=== PATIENT | female | born 1960 | race American Indian/Alaskan Native ===

== ENCOUNTER 2016-08-12 10:35 | Inpatient (IN) | payer MEDICARE ==
[2016-08-12] MEDS ORDERED: NACL 0.9% 1000 ML 1,000 ML ONE ×2 (10:45→10:59)
[2016-08-12] MEDS ORDERED: D50W (25GM) IV ONE ×3 (10:53→11:47)
[2016-08-12] MEDS ORDERED: LEVOPHED DRIP 4 MG/NS 250 ML 250 ML IV ONE (10:59)
[2016-08-12] MEDS ORDERED: ATROPINE 0.1% (CARDIAC) ONE (10:59)
[2016-08-12] MEDS ORDERED: NACL 0.9% 1000 ML 2,000 ML IV ONE (11:00)
[2016-08-12] MEDS ORDERED: ARTIFICIAL TEARS OPHTH OINT OU PRN (11:03)
[2016-08-12] MEDS ORDERED: VASELINE LIP THERAPY TP PRN (11:03)
[2016-08-12] MEDS ORDERED: QUELICIN IV ONE (11:26)
[2016-08-12] MEDS ORDERED: AMIDATE IV ONE ×2 (11:26→21:39)
[2016-08-12] MEDS ORDERED: NACL 0.9% 1000 ML 1,000 ML IV ONE ×3 (11:28→13:00)
[2016-08-12] MEDS ORDERED: ATROPINE IV ONE ×2 (11:28→12:00)
[2016-08-12 11:29] LABS: Hematocrit 34.1 % (30.3-42.9); Hemoglobin 10.7 gm/dl (10.1-14.3); Mean Corpuscular HGB Conc 32 % (30-34); Mean Corpuscular Volume 82 fl (79-97); Red Blood Count 4.17 M/mm3 (3.65-5.03); Red Cell Distribution Width 17.5 % (13.2-15.2); White Blood Count 14.2 K/mm3 (4.5-11.0)
[2016-08-12 11:32] LABS: Mean Corpuscular Hemoglobin 26 pg (28-32); Platelet Count 56 K/mm3 (140-440)
[2016-08-12 11:39] LABS: INR 1.45 (0.87-1.13)
[2016-08-12 11:40] LABS: Partial Thromboplastin Time 32.1 Sec. (24.2-36.6)
--- NOTE | 2016-08-12 11:43 | Emergency Department Report ---
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 EMS reports that patient was in asystole. Chest compressions performed. EMS attempted oral intubation but aborted due to gagging therefore nasal tracheal intubation attempted unsuccessfully. Patient received a bag valve mask ventilations upon arrival with intermittent agonal respirations. Faint bradycardic pulse palpable. Patient's sister who presented to the ED states that patient has not received her BiPAP since being at the snf. Previous medical record review. Patient was admitted here July 26 a August 07 for COPD exacerbation and is recommended by BiPAP be continued. - Related Data Home Medications Medication Instructions Recorded Confirmed Last Taken Albuterol Sulfate [Proair 90 mcg IH Q4HR 07/26/16 07/26/16 Unknown Respiclick] Aspirin [Aspirin TAB] 325 mg PO QDAY 07/26/16 07/26/16 Unknown AtorvaSTATin [Lipitor] 40 mg PO QHS 07/26/16 07/26/16 Unknown Carvedilol [Coreg] 3.125 mg PO BID 07/26/16 07/26/16 Unknown Lisinopril [Zestril TAB] 2.5 mg PO QDAY 07/26/16 07/26/16 Unknown metFORMIN [Glucophage] 500 mg PO BID 07/26/16 07/26/16 Unknown Previous Rx's Medication Instructions Recorded Last Taken Type Fludrocortisone [Florinef] 0.1 mg PO TuThSa #10 tablet 08/07/16 Unknown Rx Furosemide [Lasix TAB] 40 mg PO QDAY #30 tablet 08/07/16 Unknown Rx Pantoprazole [Protonix TAB] 40 mg PO QDAY #30 tablet 08/07/16 Unknown Rx Prednisone [predniSONE 10 mg 10 mg PO .TAPER #1 tab.ds.pk 08/07/16 Unknown Rx (6-Day Pack, 21 Tabs)] Allergies Allergy/AdvReac Type Severity Reaction Status Date / Time No Known Allergies Allergy Verified 07/26/16 23:28 ED Review of Systems ROS: Stated complaint: CARDIAC ARREST Other details as noted in HPI Comment: Unobtainable due to pts medical conditions (ams) ED Past Medical Hx - Past Medical History Previous Medical History?: Yes Hx Congestive Heart Failure: Yes (new onset dx 07/2016) Hx Renal Disease: (denies) Hx COPD: Yes (home 02) - Social History Smoking Status: Unknown if ever smoked - Medications Home Medications: Home Medications Medication Instructions Recorded Confirmed Last Taken Type Albuterol Sulfate [Proair 90 mcg IH Q4HR 07/26/16 07/26/16 Unknown History Respiclick] Aspirin [Aspirin TAB] 325 mg PO QDAY 07/26/16 07/26/16 Unknown History AtorvaSTATin [Lipitor] 40 mg PO QHS 07/26/16 07/26/16 Unknown History Carvedilol [Coreg] 3.125 mg PO BID 07/26/16 07/26/16 Unknown History Lisinopril [Zestril TAB] 2.5 mg PO QDAY 07/26/16 07/26/16 Unknown History metFORMIN [Glucophage] 500 mg PO BID 07/26/16 07/26/16 Unknown History Fludrocortisone [Florinef] 0.1 mg PO TuThSa #10 tablet 08/07/16 Unknown Rx Furosemide [Lasix TAB] 40 mg PO QDAY #30 tablet 08/07/16 Unknown Rx Pantoprazole [Protonix TAB] 40 mg PO QDAY #30 tablet 08/07/16 Unknown Rx Prednisone [predniSONE 10 mg 10 mg PO .TAPER #1 tab.ds.pk 08/07/16 Unknown Rx (6-Day Pack, 21 Tabs)] ED Physical Exam - General Limitations: Other - Other Other exam information: General: Altered unresponsive Head exam: Atraumatic, normocephalic Eyes exam: Normal appearance, pupils equal reactive to light, extraocular movements intact ENT: Blood from bilateral nares right greater than left. Blood in the posterior pharynx with intubation Neck exam: Normal inspection Respiratory exam: Pig-pavos-heht ventilation, agonal respirations, clear breath sounds with prolonged expiratory phase Cardiovascular: Bradycardic regular rhythm Abdomen: Soft, nondistended, and nontender, with normal bowel sounds, no rebound, or guarding am umbilical hernia Extremity: right Leg I0, no spontaneous movement Back: Normal Inspection, full range of motion, no tenderness Neurologic: GCS equals 3 Skin: Warm, dry, intact ED Course Vital Signs 08/12/16 08/12/16 08/12/16 10:38 10:46 10:49 Pulse Rate 50 L 49 L Pulse Rate [ Bilateral Upper Lobe] Respiratory 16 17 Rate Respiratory Rate [Bilateral Upper Lobe] Blood Pressure 54/12 O2 Sat by Pulse 97 87 90 Oximetry 08/12/16 08/12/16 08/12/16 11:00 11:16 11:30 Pulse Rate 48 L 51 L 52 L Pulse Rate [ Bilateral Upper Lobe] Respiratory 17 16 12 Rate Respiratory Rate [Bilateral Upper Lobe] Blood Pressure 46/25 50/28 50/28 O2 Sat by Pulse 99 99 Oximetry 08/12/16 08/12/16 08/12/16 11:46 12:00 12:03 Pulse Rate 54 L 54 L Pulse Rate [ 50 L Bilateral Upper Lobe] Respiratory 16 16 Rate Respiratory 16 Rate [Bilateral Upper Lobe] Blood Pressure 113/87 58/13 O2 Sat by Pulse Oximetry 08/12/16 08/12/16 08/12/16 12:15 12:25 12:26 Pulse Rate 55 L 55 L Pulse Rate [ 56 L Bilateral Upper Lobe] Respiratory 16 24 Rate Respiratory 24 Rate [Bilateral Upper Lobe] Blood Pressure 65/27 50/30 O2 Sat by Pulse 96 Oximetry 08/12/16 08/12/16 08/12/16 12:30 12:45 12:57 Pulse Rate 55 L 53 L 71 Pulse Rate [ Bilateral Upper Lobe] Respiratory 24 9 L 14 Rate Respiratory Rate [Bilateral Upper Lobe] Blood Pressure 61/37 60/25 80/46 O2 Sat by Pulse 76 L 79 L 48 L Oximetry 08/12/16 08/12/16 08/12/16 13:01 13:15 13:31 Pulse Rate 67 58 L 58 L Pulse Rate [ Bilateral Upper Lobe] Respiratory 11 L 10 L 22 Rate Respiratory Rate [Bilateral Upper Lobe] Blood Pressure 93/58 66/41 66/41 O2 Sat by Pulse 100 88 Oximetry - Reevaluation(s) Reevaluation #1: 08/12/16 11:20 Patient only had IO upon presentation. I placed an 18-gauge catheter to the left IJ. Patient intubated and central line placed. Reevaluation #2: 08/12/16 11:44 Patient went into cardiopulmonary arrest. Chest compressions, epinephrine, and amp of bicarbonate provided with return of spontaneous circulation with systolic pressure 113. Replaced elevated later Reevaluation #3: 08/12/16 12:34 Right nasal packing placed due to persistent bleeding from previous nasotracheal intubation attempt. Only anterior/sterile packing available Reevaluation #4: 08/12/16 12:59 Patient window cardiopulmonary arrest again. He received epinephrine 2 and one amp of bicarbonate with return of spontaneous circulation. She remains remains significantly hypotensive.. Order antibiotics for possible septic shock - Consultations Consultation #1: 08/12/16 12:09 Case d/w Dr colin, he will consult - Procedure Description Procedures done: Right nasal packing. Rhino Rocket activated with sterile water for 30 seconds. 7.5 anterior/posterior packing placed in the right naris and inflated with approximately 8 mL of air. pt continued to have bleeding so a second rhino rocket was placed in rigth nare. 4.5 cm anterior packing with 5 ml of air - Central Line Placement Right IJ Consent Obtained: emergent situation Time Out Performed: Yes Patient Placed on Monitor/Pulse Ox: Yes MD Prep: mask, gown, gloves Central Line Prep: Chlorhexidine scrub, sterile drapes applied Local Anesthesia Used: Lidocaine 1% Amount of Anesthesia Used (mls): 3 Ultrasound Used for Placement: Yes Central Line Lumen Inserted: triple Bloods Obtained for Lab: Yes Central Line Position: good blood return, sutured in place with nyl Dressing Applied: Tegaderm Post Procedure X-Ray: tip of catheter in good p, pneumothorax seen Patient Tolerated Procedure: well, no complications - Intubation Time Out Performed: Yes Sedative: Etomidate Mg Given: 20 Paralytic: Succinylcholine Mg Given: 100 Laryngoscope: Vinay Size: 4 ET Tube Size: 7.5 Tube Secured Depth (cm): 22 Tube Secured Location: lips Tube Placement Confirmation: visualized tube passing t, equal breath sounds bilat, no breath sounds over epi, confirmation by capnometr Patient Tolerated Procedure: well Intubation Complications: none ED Medical Decision Making - Lab Data Result diagrams: 08/12/16 11:18 08/12/16 11:18 Lab Results 08/12/16 08/12/16 08/12/16 Range/Units 10:54 11:18 11:18 WBC 14.2 H (4.5-11.0) K/mm3 RBC 4.17 (3.65-5.03) M/mm3 Hgb 10.7 (10.1-14.3) gm/dl Hct 34.1 (30.3-42.9) % MCV 82 (79-97) fl MCH 26 L (28-32) pg MCHC 32 (30-34) % RDW 17.5 H (13.2-15.2) % Plt Count 56 L (140-440) K/mm3 Add Manual Diff Complete Total Counted 100 Seg Neutrophils % Boilermaker Helper Seg Neuts % (Manual) 93.0 H (40.0-70.0) % Band Neutrophils % 0 % Lymphocytes % (Manual) 4.0 L (13.4-35.0) % Reactive Lymphs % (Man) 0 % Monocytes % (Manual) 3.0 (0.0-7.3) % Eosinophils % (Manual) 0 (0.0-4.3) % Basophils % (Manual) 0 (0.0-1.8) % Metamyelocytes % 0 % Myelocytes % 0 % Promyelocytes % 0 % Blast Cells % 0 % Nucleated RBC % Not Reportable Seg Neutrophils # Man 13.2 H (1.8-7.7) K/mm3 Band Neutrophils # 0.0 K/mm3 Lymphocytes # (Manual) 0.6 L (1.2-5.4) K/mm3 Abs React Lymphs (Man) 0.0 K/mm3 Monocytes # (Manual) 0.4 (0.0-0.8) K/mm3 Eosinophils # (Manual) 0.0 (0.0-0.4) K/mm3 Basophils # (Manual) 0.0 (0.0-0.1) K/mm3 Metamyelocytes # 0.0 K/mm3 Myelocytes # 0.0 K/mm3 Promyelocytes # 0.0 K/mm3 Blast Cells # 0.0 K/mm3 WBC Morphology Not Reportable Hypersegmented Neuts Not Reportable Hyposegmented Neuts Not Reportable Hypogranular Neuts Not Reportable Smudge Cells Not Reportable Toxic Granulation Not Reportable Toxic Vacuolation Not Reportable Dohle Bodies Not Reportable Pelger-Huet Anomaly Not Reportable Arjun Rods Not Reportable Platelet Estimate Consistent w auto Clumped Platelets Not Reportable Plt Clumps, EDTA Not Reportable Large Platelets Not Reportable Giant Platelets Not Reportable Platelet Satelliting Not Reportable Plt Morphology Comment Not Reportable RBC Morphology Not Reportable Dimorphic RBCs Not Reportable Polychromasia Not Reportable Hypochromasia 1+ Poikilocytosis Not Reportable Anisocytosis 1+ Microcytosis Not Reportable Macrocytosis Not Reportable Spherocytes Not Reportable Pappenheimer Bodies Not Reportable Sickle Cells Not Reportable Target Cells Rare Tear Drop Cells Not Reportable Ovalocytes Not Reportable Stomatocytes Few Helmet Cells Not Reportable [place] Bodies Not Reportable [place] Rings Not Reportable [place] Cells Not Reportable Bite Cells Not Reportable Crenated Cell Not Reportable Elliptocytes Not Reportable Acanthocytes (Spur) Not Reportable Rouleaux Not Reportable Hemoglobin C Crystals Not Reportable Schistocytes Not Reportable Malaria parasites Not Reportable Lyle Bodies Not Reportable Hem Pathologist Commnt No PT 17.6 H (12.2-14.9) Sec. INR 1.45 H (0.87-1.13) APTT 32.1 (24.2-36.6) Sec. POC ABG pH (7.35-7.45) POC ABG pCO2 (35-45) POC ABG pO2 (80-105) POC ABG HCO3 POC ABG Total CO2 POC ABG O2 Sat POC ABG Base Excess VBG pH (7.320-7.420) FiO2 % Sodium (137-145) mmol/L Potassium (3.6-5.0) mmol/L Chloride (98-107) mmol/L Carbon Dioxide (22-30) mmol/L Anion Gap mmol/L BUN (7-17) mg/dL Creatinine (0.7-1.2) mg/dL Estimated GFR ml/min BUN/Creatinine Ratio % Glucose (65-100) mg/dL POC Glucose 59 L (70-105) Lactic Acid (0.7-2.0) mmol/L Calcium (8.4-10.2) mg/dL Total Bilirubin (0.1-1.2) mg/dL AST (5-40) units/L ALT (7-56) units/L Alkaline Phosphatase (35-129) units/L Total Creatine Kinase (30-135) units/L CK-MB (CK-2) (0.0-4.0) ng/mL CK-MB (CK-2) Rel Index (0-4) Troponin T (0.00-0.029) ng/mL Total Protein (6.3-8.2) g/dL Albumin (3.9-5) g/dL Albumin/Globulin Ratio % Triglycerides (2-149) mg/dL Cholesterol (50-199) mg/dL LDL Cholesterol Direct (50-130) mg/dL HDL Cholesterol (40-59) mg/dL Cholesterol/HDL Ratio % 08/12/16 08/12/16 08/12/16 Range/Units 11:18 11:18 11:18 WBC (4.5-11.0) K/mm3 RBC (3.65-5.03) M/mm3 Hgb (10.1-14.3) gm/dl Hct (30.3-42.9) % MCV (79-97) fl MCH (28-32) pg MCHC (30-34) % RDW (13.2-15.2) % Plt Count (140-440) K/mm3 Add Manual Diff Total Counted Seg Neutrophils % Seg Neuts % (Manual) (40.0-70.0) % Band Neutrophils % % Lymphocytes % (Manual) (13.4-35.0) % Reactive Lymphs % (Man) % Monocytes % (Manual) (0.0-7.3) % Eosinophils % (Manual) (0.0-4.3) % Basophils % (Manual) (0.0-1.8) % Metamyelocytes % % Myelocytes % % Promyelocytes % % Blast Cells % % Nucleated RBC % Seg Neutrophils # Man (1.8-7.7) K/mm3 Band Neutrophils # K/mm3 Lymphocytes # (Manual) (1.2-5.4) K/mm3 Abs React Lymphs (Man) K/mm3 Monocytes # (Manual) (0.0-0.8) K/mm3 Eosinophils # (Manual) (0.0-0.4) K/mm3 Basophils # (Manual) (0.0-0.1) K/mm3 Metamyelocytes # K/mm3 Myelocytes # K/mm3 Promyelocytes # K/mm3 Blast Cells # K/mm3 WBC Morphology Hypersegmented Neuts Hyposegmented Neuts Hypogranular Neuts Smudge Cells Toxic Granulation Toxic Vacuolation Dohle Bodies Pelger-Huet Anomaly Arjun Rods Platelet Estimate Clumped Platelets Plt Clumps, EDTA Large Platelets Giant Platelets Platelet Satelliting Plt Morphology Comment RBC Morphology Dimorphic RBCs Polychromasia Hypochromasia Poikilocytosis Anisocytosis Microcytosis Macrocytosis Spherocytes Pappenheimer Bodies Sickle Cells Target Cells Tear Drop Cells Ovalocytes Stomatocytes Helmet Cells [place] Bodies [place] Rings [place]ay Cells Bite Cells Crenated Cell Elliptocytes Acanthocytes (Spur) Rouleaux Hemoglobin C Crystals Schistocytes Malaria parasites Lyle Bodies Hem Pathologist Commnt PT (12.2-14.9) Sec. INR (0.87-1.13) APTT (24.2-36.6) Sec. POC ABG pH (7.35-7.45) POC ABG pCO2 (35-45) POC ABG pO2 (80-105) POC ABG HCO3 POC ABG Total CO2 POC ABG O2 Sat POC ABG Base Excess VBG pH 7.111 L* (7.320-7.420) FiO2 % Sodium 138 (137-145) mmol/L Potassium 6.5 H* (3.6-5.0) mmol/L Chloride 93.1 L (98-107) mmol/L Carbon Dioxide 25 (22-30) mmol/L Anion Gap 26 mmol/L BUN 100 H (7-17) mg/dL Creatinine 2.7 H (0.7-1.2) mg/dL Estimated GFR 22 ml/min BUN/Creatinine Ratio 37.03 % Glucose 197 H (65-100) mg/dL POC Glucose (70-105) Lactic Acid 6.9 H* (0.7-2.0) mmol/L Calcium 7.1 L (8.4-10.2) mg/dL Total Bilirubin 1.3 H (0.1-1.2) mg/dL AST 56 H (5-40) units/L ALT 67 H (7-56) units/L Alkaline Phosphatase 77 (35-129) units/L Total Creatine Kinase (30-135) units/L CK-MB (CK-2) (0.0-4.0) ng/mL CK-MB (CK-2) Rel Index (0-4) Troponin T (0.00-0.029) ng/mL Total Protein 4.5 L (6.3-8.2) g/dL Albumin 2.4 L (3.9-5) g/dL Albumin/Globulin Ratio 1.1 % Triglycerides (2-149) mg/dL Cholesterol (50-199) mg/dL LDL Cholesterol Direct (50-130) mg/dL HDL Cholesterol (40-59) mg/dL Cholesterol/HDL Ratio % 08/12/16 08/12/16 08/12/16 Range/Units 11:18 11:31 12:20 WBC (4.5-11.0) K/mm3 RBC (3.65-5.03) M/mm3 Hgb (10.1-14.3) gm/dl Hct (30.3-42.9) % MCV (79-97) fl MCH (28-32) pg MCHC (30-34) % RDW (13.2-15.2) % Plt Count (140-440) K/mm3 Add Manual Diff Total Counted Seg Neutrophils % Seg Neuts % (Manual) (40.0-70.0) % Band Neutrophils % % Lymphocytes % (Manual) (13.4-35.0) % Reactive Lymphs % (Man) % Monocytes % (Manual) (0.0-7.3) % Eosinophils % (Manual) (0.0-4.3) % Basophils % (Manual) (0.0-1.8) % Metamyelocytes % % Myelocytes % % Promyelocytes % % Blast Cells % % Nucleated RBC % Seg Neutrophils # Man (1.8-7.7) K/mm3 Band Neutrophils # K/mm3 Lymphocytes # (Manual) (1.2-5.4) K/mm3 Abs React Lymphs (Man) K/mm3 Monocytes # (Manual) (0.0-0.8) K/mm3 Eosinophils # (Manual) (0.0-0.4) K/mm3 Basophils # (Manual) (0.0-0.1) K/mm3 Metamyelocytes # K/mm3 Myelocytes # K/mm3 Promyelocytes # K/mm3 Blast Cells # K/mm3 WBC Morphology Hypersegmented Neuts Hyposegmented Neuts Hypogranular Neuts Smudge Cells Toxic Granulation Toxic Vacuolation Dohle Bodies Pelger-Huet Anomaly Arjun Rods Platelet Estimate Clumped Platelets Plt Clumps, EDTA Large Platelets Giant Platelets Platelet Satelliting Plt Morphology Comment RBC Morphology Dimorphic RBCs Polychromasia Hypochromasia Poikilocytosis Anisocytosis Microcytosis Macrocytosis Spherocytes Pappenheimer Bodies Sickle Cells Target Cells Tear Drop Cells Ovalocytes Stomatocytes Helmet Cells [place] Bodies [place] Rings [place] Cells Bite Cells Crenated Cell Elliptocytes Acanthocytes (Spur) Rouleaux Hemoglobin C Crystals Schistocytes Malaria parasites Lyle Bodies Hem Pathologist Commnt PT (12.2-14.9) Sec. INR (0.87-1.13) APTT (24.2-36.6) Sec. POC ABG pH 7.185 L (7.35-7.45) POC ABG pCO2 80.7 H (35-45) POC ABG pO2 25 L (80-105) POC ABG HCO3 30.5 POC ABG Total CO2 33 POC ABG O2 Sat 30 POC ABG Base Excess 2 VBG pH (7.320-7.420) FiO2 50 % Sodium (137-145) mmol/L Potassium (3.6-5.0) mmol/L Chloride (98-107) mmol/L Carbon Dioxide (22-30) mmol/L Anion Gap mmol/L BUN (7-17) mg/dL Creatinine (0.7-1.2) mg/dL Estimated GFR ml/min BUN/Creatinine Ratio % Glucose (65-100) mg/dL POC Glucose (70-105) Lactic Acid (0.7-2.0) mmol/L Calcium (8.4-10.2) mg/dL Total Bilirubin (0.1-1.2) mg/dL AST (5-40) units/L ALT (7-56) units/L Alkaline Phosphatase (35-129) units/L Total Creatine Kinase 137 H 141 H (30-135) units/L CK-MB (CK-2) 6.3 H (0.0-4.0) ng/mL CK-MB (CK-2) Rel Index 4.4 H (0-4) Troponin T 0.124 H* (0.00-0.029) ng/mL Total Protein (6.3-8.2) g/dL Albumin (3.9-5) g/dL Albumin/Globulin Ratio % Triglycerides 111 (2-149) mg/dL Cholesterol 109 (50-199) mg/dL LDL Cholesterol Direct 61 (50-130) mg/dL HDL Cholesterol 26 L (40-59) mg/dL Cholesterol/HDL Ratio 4.19 % - EKG Data -: EKG Interpreted by Me (sinus bradycardia 55 with first-degree AV block no ST elevation) - EKG Data When compared to previous EKG there are: no significant change - Radiology Data Radiology results: report reviewed Chest x-ray: Adequate placement of ET tube and central venous catheter. , Both may be advanced more. Lungs clear mild cardiomegaly - Medical Decision Making Patient requires admission to the ICU. She is still very unstable requiring ventilatory and pressure support. Medications initiated for hyperkalemia, IV fluids initiated, patient placed on Levophed in the ED. Patient did receive 2 doses of atropine with minimal improvement in heart rate. - Differential Diagnosis respiratory failure, sepsis, [place], arrhythmia Critical Care Time: Yes Critical care time in (mins) excluding proc time.: 40 Critical care attestation.: If time is entered above; I have spent that time in minutes in the direct care of this critically ill patient, excluding procedure time. ED Disposition Clinical Impression: Cardiopulmonary arrest, Hypotension, Prerenal azotemia, Acute renal failure, Hyperkalemia, COPD with exacerbation, Cor pulmonale (chronic), Epistaxis, Thrombocytopenia, Elevated lactic acid level, Acidosis Disposition: OP ADMITTED IP TO THIS HOSP Is pt being admited?: Yes Condition: Stable Time of Disposition: 12:14 (Dr mae/hosp)
[2016-08-12 11:45] LABS: Albumin 2.4 g/dL (3.9-5); Albumin/Globulin Ratio 1.1 %; BUN/Creatinine Ratio 37.03; Bilirubin,Total 1.3 mg/dL (0.1-1.2); Calcium 7.1 mg/dL (8.4-10.2); Chloride 93.1 mmol/L (98-107); Total Protein 4.5 g/dL (6.3-8.2)
[2016-08-12 11:46] LABS: Potassium 6.5 mmol/L (3.6-5.0)
[2016-08-12] MEDS ORDERED: PROVENTIL IH ONE (11:46)
[2016-08-12] MEDS ORDERED: SODIUM BICARBONATE IV ONE ×6 (11:46→21:36)
[2016-08-12] MEDS ORDERED: KAYEXALATE PO ONE (11:49)
[2016-08-12 11:52] LABS: Creatine Kinase MB 6.3 ng/mL (0.0-4.0)
--- NOTE | 2016-08-12 11:52 | XRay Report ---
AP CHEST: HISTORY: Endotracheal tube placement. Central line placement. FINDINGS: The endotracheal tube has been inserted which terminates 6 cm superior to the betty. A right IJ venous catheter has been inserted which terminates in the superior SVC, consider advancement by 5-6 cm to the cavoatrial junction. The lungs are well-aerated and clear. No evidence for pneumonia, pleural effusion or pneumothorax. Mild cardiomegaly is unchanged since the exam 8 days ago. IMPRESSION: Adequate placement of lines and tubes. Mild cardiomegaly. Lungs clear.
--- NOTE | 2016-08-12 11:58 | Admit Criteria Form ---
Admission Criteria Documentation: INTENSIVE CARE UNIT ADMISSION Intensive Care Admission Guidelines ( Place 'X' for any and all applicable criteria): Admission to ICU may be indicated when need is demonstrated by ANY ONE of the following (1)(2)(3)(4)(5)(6)(7)(8)(9) : [X ]I. Vital sign abnormalities, including ANY ONE of the following: [X ]a) Systolic arterial pressure less than 90 mm Hg, or 20 mm Hg below the patient's usual pressure [ ]b) Diastolic arterial pressure greater than 120 mm Hg [X ]c) Mean arterial pressure less than 70 mm Hg [A] [ ]d) Pulse less than 40 or greater than 140 beats per minute (in adult) [ ]e) Respiratory rate greater than 35 or less than 8 breaths per minute [ X]II. Laboratory findings (new), including ANY ONE of the following (10): [ ]a) Saturation of arterial oxygen less than 88% or partial pressure of oxygen less than 60 mm Hg (8.0 kPa) despite oxygen supplementation [ ]b) Rising partial pressure of carbon dioxide with respiratory acidosis [X]c) pH less than 7.2 or greater than 7.65 [ ]d) Serum glucose greater than 800 mg/dL (44.4 mmol/L) [ ]e) Serum sodium less than 110 mEq/L (mmol/L) or greater than 160 mEq/L (mmol/L) [ ]f) Serum potassium less than 2 mEq/L (mmol/L) or greater than 7 mEq /L (mmol/L) [ ]g) Serum calcium greater than 15 mg/dL (3.75 mmol/L) [ ]h) Serum phosphorus less than 1 mg/dL (0.32 mmol/L) [ ]i) Toxic drug level or poisoning causing or likely to cause neurologic or Hemodynamic instability [ ]j) Less severe laboratory abnormalities contributing to ANY ONE of the following: [ ]i) Seizure [ ]ii) Altered mental status [ ]iii) Muscle weakness [ ]iv) Arrhythmias [ ]v) Hemodynamic instability [ ]vi) Other significant clinical manifestations [ ]III. Electrocardiogram (or cardiac monitoring) findings, including ANY ONE of the following: [ ]a) Inherently unstable or life-threatening arrhythmia (eg, sustained ventricular tachycardia, ventricular fibrillation, asystole) [ ]b) Arrhythmia causing severe hypotension (eg, bradycardia, tachycardia) [ ]c) Complete heart block causing severe hypotension [ ]d) Other findings indicative of a need for intensive care (eg , CA) [X ]IV.Physical findings, including ANY ONE of the following: [ ]a) Threatened airway [ ]b) Sudden altered mental status [ ]c) Repeated or prolonged seizures [ ]d) Coma [ ]e) New-onset anuria (urine output <0.1 mL/kg/hr over 4 h) [ ]f) Cyanosis (new) [ ]g) Cardiac tamponade [X ]h) Status post respiratory or cardiac arrest [ ]i) Severe jaime (eg, partial thickness jaime over more than 10% of body surface, third-degree jaime) [ ]j) Findings consistent with abdominal emergency (eg, peritoneal signs) [ ]V.Imaging findings, such as dissecting aneurysm or ruptured viscus [ ].Specific intervention or monitoring needed, as indicated by ANY ONE of the following: [ ]a) New need for assisted ventilation, invasive or noninvasive(11) [ ]b) New need for intubation (eg, to protect airway) [ ]c) New tracheostomy (less than 48 hours old) [ ]d) Hourly vital signs or neurologic checks [ ]e) Pulmonary artery line monitoring needed [ ]f) Continuous arterial line monitoring needed [ ]g) Continuous IV vasoactive drugs [ ]h) Continuous IV antiarrhythmics [ ]i) Large volume IV fluid resuscitation (eg, greater than 6 L per day ) [ ]j) Large or rapid transfusion needs (eg, more than 6 units within 24 hours) [ ]k) High-risk IV treatment, such as bolus IV medicatns or mannitol infusion [ ]l) Acute cardiac pacing [ ]m) Intra-aortic balloon pump [ ]n) Ventricular assist device [ ]o) Cardioversion [ ]p) Pericardiocentesis [ ]q) Hemodialysis in unstable patient [ ]r) Continuous renal replacement therapy (eg, continuous veno-venous hemofiltration) [ ]s) Peritoneal dialysis initiation [ ]t) Emergency bronchoscopic therapy (eg, for hemoptysis) [ ]u) Emergency endoscopic therapy for bleeding [ ]v) Balloon tamponade for variceal bleeding [ ]w) Intracranial pressure monitoring or tissue oxygen monitoring [ ]x) Ventriculostomy monitoring [ ]y) Treatment of ongoing seizures [ ]z) Induced hypothermia or coma [ ]aa) Ongoing frequent testing and treatment for acute conditions, including ANY ONE of the following: [ ]i) Correction of severe metabolic acidosis/ alkalosis [ ]ii). Severe fluid overload [ ]iii) Cerebral edema [ ]iv) Monitoring or suctioning for respiratory insufficiency or acidosis [ ]v) Monitoring for active bleeding [ ]bb) Rapid desensitization for high-risk hypersensitivity reaction to required medication (eg, penicillin)(12) [ ]cc) Other need for treatment or monitoring not available outside the ICU [ ]VII.Cardiology diagnoses or procedures, including ANY ONE of the following (13)(14)(15)(16)(17): [ ]a) Chest pain with ANY ONE of the following: [ ]i) Hemodynamic instability [ ]ii) Suspicion of diagnoses needing ICU care (eg, aortic dissection) [ ]iii) New unstable or symptomatic arrhythmia or ECG finding (eg, ventricular tachycardia, ventricular fibrillation, advanced heart block) [ ]iv) Syncope or near-syncope [ ]v) SBP less than 100 mm Hg [ ]vi) Pulmonary edema thought to be due to ischemia [ ]vii) New or worsening mitral regurgitation murmur, S3 , or rales [ ]b) Acute CA with complications as indicated by ANY ONE of the following: [ ]i) Persistent chest pain [ ]ii) Hemodynamic instability [ ]iii) New unstable or symptomatic arrhythmia or ECG finding (eg, ventricular tachycardia, ventricular fibrillation, advanced heart block) [ ]iv) Syncope or near-syncope [ ]v) Pulmonary edema thought to be due to ischemia [ ]vi) New or worsening mitral regurgitation murmur, S3 , or rales [ ]vii) New-onset bundle branch block [ ]viii) Hemorrhagic complication (eg, intracranial or access site bleed following thrombolysis) [ ]c) Cardiac arrhythmia or conduction defect with Hemodynamic instability [ ]d) Complication of cardiac ablation, including ANY ONE of the following(18): [ ]i) Pericardial tamponade [ ]ii) Hemodynamic instability [ ]iii) Thromboembolic stroke [ ]iv) Aortic valve injury [ ]v) Vascular injuries [ ]vi) Esophageal perforation [ ]vii) Severe arrhythmia [ ]viii) Air embolism [ ]ix) Other severe complication [ ]e) Cardiogenic shock [ ]f) Hypertensive emergency, with need for ANY ONE of the following(19): [ ]i) IV antihypertensive therapy [ ]ii) Invasive hemodynamic monitoring (eg, arterial line) [ ]g) Pericardial tamponade [ ]h) Severe heart failure, with ANY ONE of the following(15): [ ]i) Respiratory failure [ ]ii) Cardiogenic shock [ ]iii) Severe arrhythmias [ ]iv) Evidence of cardiac ischemia [ ]i Myocarditis, with ANY ONE of the following [ ]i) Hemodynamic instability [ ]ii) Respiratory failure [ ]iii) Severe arrhythmias [ ]iv) Need for cardiac assist device (eg, left ventricular assist device or extracorporeal membrane oxygenator) [ ]j) Status post cardiac arrest(20) [ ]VIII. Cardiovascular Surgery diagnoses or procedures, including ANY ONE of the following.(21)(22): [ ]a) Acute aortic dissection [ ]b) Aortic surgery for ANY ONE of the following: [ ]i) Thoracic aneurysm [ ]ii) Abdominal aneurysm with ANY ONE of the following(23): [ ]1) Emergency repair [ ]2) Severe cardiopulmonary disease [ ]3) Dialysis-dependent renal failure [ ]4) Need for IV blood pressure control [ ]5) Need for ongoing ventilatory support [ ]6) Perioperative complications, including ANY ONE of the following: [ ]A. Sustained Hemodynamic instability [ ]B. Cardiac ischemia or arrhythmia [ ]C. Hypothermia (less than 35 degrees C (95 degrees F)) [ ]D. Blood transfusion greater than 3 L [ ]iii) Aortic coarctation operative excision or repair [ ]iv) Aortofemoral or aortoiliac bypass with ANY ONE of the following: [ ]1) Continued intubation [ ]2) Hemodynamic instability [ ]3) Need for IV blood pressure control [ ]4) Severe cardiopulmonary disease [ ]c) Cardiac surgery [ ]d) Carotid endarterectomy or stent placement with ANY ONE of the following: [ ]i) Blood pressure <100/60 mm Hg or >160/90 mm Hg despite 4 h of postanesthetic management [ ]ii) New or progressive neurologic defect [ ]iii) Chest pain [ ]iv) Continued intubation [ ]v) Heart failure [ ]vi) Airway compromise by hematoma or vocal cord paralysis [ ]vi) Need for IV blood pressure control [ ]e) Heart transplant [ ]f) Infrainguinal peripheral vascular surgery with ANY ONE of the following: [ ]i) Hemodynamic instability [ ]ii) Acute complications such as persistent chest pain or respiratory distress [ ]iii) Requirement for IV antiarrhythmic or vasoactive agent [ ]iv) Requirement for pulmonary artery catheter [ ]v) Severe hypertension despite 6 hours of recovery room management [ ]g) Complications of any surgery requiring ICU intervention as indicated by ANY ONE of the following(24): [ ]i) Hemodynamic instability [ ]ii) Myocardial infarction with complications (eg, severe arrhythmia, hypotension) [ ]iii) Excessive bleeding or severe coagulopathy [ ]iv) Respiratory failure [ ]v) Renal failure [ ]vi) Airway instability or obstruction [ ]vii) Neurologic deterioration [ ]viii) Infection with likelihood of sepsis syndrome or significant fluid shifts [ ]IX.Endocrinology diagnoses or procedures, including ANY ONE of the following(25)(26): [ ]a) Adrenal crisis with Hemodynamic instability(27) [ ]b) Pheochromocytoma with ANY ONE of the following(28): [ ]i) Hypertensive crisis [ ]ii) Postoperative Hemodynamic instability [ ]iii) Need for IV vasoactive therapy [ ]iv) Need for invasive arterial or central venous pressure monitoring [ ]v) Organ ischemia [ ]c) Diabetic hyperosmolar state with obtundation or coma [ ]d) Diabetic ketoacidosis with ANY ONE of the following: [ ]i) Serum pH less than 7.10 or bicarbonate level less than 10 mEq/L (mmol/L) [ ]ii) Rapidly changing electrolytes [ ]iii) Hypotension [ ]iv) Requirement for large-volume fluid resuscitation [ ]v) Respiratory insufficiency [ ]vi) Life-threatening cardiac dysrhythmias [ ]vii) Obtundation [ ]viii) Severe precipitating condition such as sepsis, stroke, or acute CA [ ]e) Severe hypoglycemia requiring continuous glucose infusion with frequent adjustment or glucagon infusion [ ]f) Hyperthyroidism associated with thyroid storm (also known as thyrotoxic crisis)(29) [ ]g) Myxedema with life-threatening neurologic, cardiovascular, electrolyte, or renal dysfunction(29) [ ]h) Diabetes insipidus that cannot be controlled with routine medication (30) [ ]X. Gastroenterology diagnoses or procedures, including ANY ONE of the following: [ ]a) Esophageal perforation(31) [ ]b) Severe caustic esophageal injury(31) [ ]c) Liver disease complications with ANY ONE of the following(32): [ ]i) Severe hepatic encephalopathy (eg, stage 3 (somnolent) or higher) [ ]ii) Type 1 hepatorenal syndrome [ ]iii) Other cirrhosis-associated causes of acute renal failure ( eg, severe hypovolemia, acute tubular necrosis, abdominal compartment syndrome) [ ]iv) Hemodynamic instability [ ]v) Respiratory insufficiency due to severe ascites [ ]vi) Sepsis due to spontaneous bacterial peritonitis [ ]d) Fulminant hepatic failure when aggressive intervention or transplant is anticipated (32) [ ]e) Gastrointestinal hemorrhage (upper or lower) with ANY ONE of the following(33)(34): [ ]i) Active ongoing bleeding [ ]ii) Transfusion requirement greater than 2 units of packed red cells [ ]iii) Bleeding ulcer or nonbleeding visible vessel seen on endoscopy [ ]iv) Bleeding ulcer, visible blood vessel, bleeding (or recently bleeding) esophageal varices seen on endoscopy [ ]v) Hypotension [ ]vi) Syncope [ ]vii) Coagulopathy [ ]viii) Hepatic cirrhosis [ ]ix) Abnormal mental status [ ]x) Unstable comorbid condition or end organ dysfunction [ ]xi) Ischemia due to poor perfusion [ ]xii) Need for hemodynamic monitoring (eg, for patients with heart failure or valvular disease) [ ]f) Severe pancreatitis indicated by ANY ONE of the following (35)(36): [ ]i) Requirement for aggressive fluid resuscitation [ ]ii) Life-threatening electrolyte abnormality [ ]iii) SBP less than 90 mm Hg [ ]iv) Persistent tachycardia greater than 120 beats per minute [ ]v) Patients at high risk of rapid deterioration, including ANY ONE of the following: [ ]1) Calculated [place] II score greater than 8 [ ]2) Age older than 55 years [ ]3) BMI greater than 30 [ ]4) Greater than 30% pancreatic necrosis on CT scan [ ]5) Admission hematocrit greater than 47% (0.47) [ ]vi) Organ failure as indicated by ANY ONE of the following: [ ]1) Serum creatinine greater than 1.9 mg/dL (168 micromoles/L) [ ]2) Requirement for mechanical ventilation [ ]3) Urine output less than 50 mL/hour [ ]4) Arterial partial pressure of oxygen less than 60 mm Hg (8.0 kPa) despite supplemental oxygen [ ]5) PiO2/FiO2 ratio less than 300 [ ]vii) Expanding pseudocyst [ ]viii) Infected pancreas [ ]ix) Pleural effusion [ ]x) Encephalopathy [ ]xi) Severe comorbidities [ ]XI. General Surgery diagnoses or procedures, including ANY ONE of the following (9)(24)(37): [ ]a) Acute abdominal catastrophe (eg, ischemic bowel, perforated viscus, abdominal compartment syndrome) [ ]b) Complications of any surgery requiring ICU intervention as indicated by ANY ONE of the following: [ ]i) Hemodynamic instability [ ]ii) CA with complications (eg, severe arrhythmia, hypotension) [ ]iii) Excessive bleeding or severe coagulopathy [ ]iv) Respiratory failure [ ]v) Renal failure [ ]vi) Airway instability or obstruction [ ]vii) Neurologic deterioration [ ]viii) Infection with likelihood of sepsis syndrome or significant fluid shifts [ ]c) Multiple trauma with complicating features as indicated by ANY ONE of the following(38): [ ]i) Impending acute respiratory failure due to lung contusion, unstable chest wall, aspiration, or hemorrhage [ ]ii) Facial or neck injury threatening airway patency [ ]iii) Cardiac contusion [ ]iv) Pericardial effusion [ ]v) Bronchial tear [ ]vi) Hemodynamic instability [ ]vii) Rhabdomyolisis requiring large volume IV fluid resuscitation [ ]viii)Other significant complicating feature [ ]d) Organ transplant(39)(40) [ ]e) Esophagectomy(31) [ ]f) Whipple procedure [ ]g) Preoperative or postoperative patients requiring ICU intervention, such as hemodynamic optimization, pulmonary artery monitoring, mechanical ventilation, or extensive nursing care [ ]h) Obesity surgery patients with ANY ONE of the following(41): [ ]i) ICU management needs for comorbid conditions, such as sleep apnea or airway management needs [ ]ii) Failed postoperative extubation [ ]iii) Intraoperative complications [ ]XII. Nephrology diagnoses or procedures, including acute, or acute on chronic renal insufficiency with ANY ONE of the following(44)(45): [ ]a) Life-threatening electrolyte or acid-base disorder [ ]b) Acute pulmonary edema [ ]c) Hypotension or significant volume depletion [ ]d) Hypertensive emergency [ ]e) Underlying critical illness contributing to renal failure (eg, septic shock, hepatorenal syndrome) [ ]f) Need for continuous renal replacement therapy [ ]XIII. Neurology diagnoses or procedures, including ANY ONE of the following (46)(47) [B] : [ ]a) Intracranial hypertension requiring ANY ONE of the following(49 ): [ ]i) Induced barbiturate coma [ ]ii) Pharmacologic paralysis or deep sedation and mechanical ventilation [ ]iii) Intracranial pressure or cerebral perfusion pressure monitoring [ ]iv) IV mannitol or hypertonic saline [ ]v) Frequent serum osmolality measurements [ ]b) Seizures with ANY ONE of the following(50): [ ]i) Status epilepticus [ ]ii) Airway compromise requiring or likely to require mechanical ventilation [ ]iii) Severe electrolyte abnormalities causing seizures [ ]c) Progressive acute neurologic dysfunction requiring or likely to require ANY ONE of the following: [ ]i) Mechanical ventilation [ ]ii) Intracranial pressure or cerebral perfusion pressure monitoring [ ]d) Meningitis with obtundation or respiratory insufficiency [C])(51 ) [ ]e) Stroke with ANY ONE of the following(52)(53): [ ]i) Need for observation after thrombolysis [ ]ii) Altered mental status [ ]iii) Need for mechanical ventilation [ ]iv) Elevated intracranial pressure [ ]v) Hypertensive emergency [ ]vi) High risk of progressive infarction or deterioration based on CT scan or MRI [ ]vii) Hemorrhage [ ]f) Acute coma [ ]g) Acute spontaneous intracranial hemorrhage(53)(54) [ ]h) Drug ingestion with ANY ONE of the following(56)(57): [ ]i) Hemodynamic instability [ ]ii) Respiratory depression (partial pressure of carbon dioxide >45 mm Hg (6.0 kPa), new) [ ]iii) Patient requires or is likely to require mechanical ventilation. [ ]iv) Arrhythmias [ ]v) Seizures [ ]vi) Altered mental status ([place] coma scale score less than 12, new) [ ]vii) Significant risk for acute deterioration (eg, toxic level of hypotension or arrhythmia-producing drug) [ ]viii) Drug-induced hypothermia or hyperthermia [ ]ix) Increasing metabolic acidosis [ ]x) Severe hypoglycemia requiring glucose infusion with frequent adjustment or glucagon administration [ ]xi) Ongoing antidote administration (eg, continuous naloxone infusion, organophosphate toxicity treatment) [ ]xii) Emergency intervention need (eg, dialysis, hemoperfusion, restraints) [ ]i) Brain with preparation for organ donation [ ]j) Traumatic brain injury with ANY ONE of the following(55): [ ]i) Altered mental status (eg, new onset [place] coma scale score less than 10) [ ]ii) Cerebral edema [ ]iii) Cerebral hemorrhage [ ]iv) Increased intracranial pressure [ ]XIV. Neurosurgery diagnoses or procedures, including ANY ONE of the following(49)(58)(59): [ ]a) Emergency craniotomy for tumor, hematoma, or trauma [ ]b) Elective craniotomy for posterior fossa tumor [ ]c) Elective craniotomy (supratentorial) for tumor with ANY ONE of the following: [ ]i) Postoperative neurologic deficit or impaired consciousness 6 hours after completion of procedure [ ]ii) SBP less than 110 mm Hg or greater than 180 mm Hg despite therapy [ ]iii) Extensive operative blood loss [ ]iv) High anesthesia risk (eg, [place] [employer] score greater than 3 [ ]d) Craniotomy for aneurysm with ANY ONE of the following: [ ]i) Postoperative neurologic deficit or impaired consciousness 6 hours after completion of procedure [ ]ii) Preoperative [place]ro[place]-Neal grade 3 or higher [ ]iii) SBP less than 110 mm Hg or greater than 180 mm Hg despite therapy [ ]iv) Intracranial pressure monitoring [ ]e) Acute spinal cord injury [ ]f) Subarachnoid hemorrhage [ ]g) Traumatic brain injury with ANY ONE of the following: [ ]i) Acute mental status change ([place] coma scale score less than 10) [ ]ii) CT scan showing cerebral edema or hemorrhage [ ]iii) Intracranial pressure monitoring [ ]h) Complications of any surgery requiring ICU intervention as indicated by ANY ONE of the following(60): [ ]i) Hemodynamic instability [ ]ii) CA with complications (eg, severe arrhythmia, hypotension) [ ]iii) Excessive bleeding or severe coagulopathy [ ]iv) Respiratory failure [ ] v) Renal failure [ ]vi) Airway instability or obstruction [ ]vii) Neurologic deterioration [ ]viii) Infection with likelihood of sepsis syndrome or significant fluid shifts [ ]i) Preoperative or postoperative patients requiring ICU intervention, such as hemodynamic optimization, pulmonary artery monitoring, mechanical ventilation, or extensive nursing care [ ]XV.Obstetrics and Gynecology diagnoses or procedures, including ANY ONE of the ffg. (61)(62)(63): [ ]a) Severe peripartum condition as indicated by ANY ONE of the following: [ ]i) Eclampsia [ ]ii) Hypertensive emergency [ ]iii) HELLP syndrome (hemolysis, elevated liver enzymes, and low platelet count) [ ]iv) Pulmonary edema [ ]v) Respiratory failure [ ]vi) Pulmonary embolism [ ]vii) Anaphylactoid syndrome of (amniotic fluid embolus) [ ]viii) Ovarian hyperstimulation syndrome [D] [ ]ix) Acute fatty liver of (hepatic failure) [ ]x) Complications such as placental abruption or severe hemorrhage [ ]xi) Sepsis (eg, puerperal sepsis, chorioamnionitis, septic ) [ ]xii) cardiomyopathy with severe congestive heart failure (eg, respiratory failure, cardiogenic shock) [ ]b) Ruptured ectopic [ ]c) Complications of any surgery requiring ICU intervention as indicated by ANY ONE of the following: [ ]i) Hemodynamic instability [ ]ii) CA with complications (eg, severe arrhythmia, hypotension) [ ]iii) Excessive bleeding or severe coagulopathy [ ]iv) Respiratory failure [ ]v) Renal failure [ ]vi) Airway instability or obstruction [ ]vii) Neurologic deterioration [ ]viii) Infection with likelihood of sepsis syndrome or significant fluid shifts [ ]d) Preoperative or postoperative patients requiring ICU intervention , such as hemodynamic optimization, pulmonary artery monitoring, mechanical ventilation, or extensive nursing care [ ]XVI.Ophthalmology diagnoses or procedures, including ANY ONE of the following (64): [ ]a) Complications of any surgery requiring ICU intervention, such as ANY ONE of the following: [ ]i) Hemodynamic instability [ ]ii) CA with complications (eg, severe arrhythmia, hypotension) [ ]iii) Excessive bleeding or severe coagulopathy [ ]iv) Respiratory failure [ ]v) Renal failure [ ]vi) Airway instability or obstruction [ ]vii) Neurologic deterioration [ ]viii) Infection with likelihood of sepsis syndrome or significant fluid shifts [ ]b) Preoperative or postoperative patients requiring ICU intervention , such as hemodynamic optimization, pulmonary artery monitoring, mechanical ventilation, or extensive nursing care [ ]XVII.Orthopedics diagnoses or procedures, including ANY ONE of the following [phone]): [ ]a) Complications of any surgery requiring ICU intervention as indicated by ANY ONE of the following: [ ]i) Hemodynamic instability [ ]ii) CA with complications (eg, severe arrhythmia, hypotension) [ ]iii) Excessive bleeding or severe coagulopathy [ ]iv) Respiratory failure [ ]v) Renal failure [ ]vi) Airway instability or obstruction [ ] vii) Neurologic deterioration [ ]viii) Infection with likelihood of sepsis syndrome or significant fluid shifts [ ]b) Multiple trauma with complicating features as indicated by ANY ONE of the following(38): [ ]i) Impending acute respiratory failure due to lung contusion, unstable chest wall, pneumothorax, aspiration, or hemorrhage [ ]ii) Facial or neck injury threatening airway patency [ ]iii) Cardiac contusion [ ]iv) Rhabdomyolysis requiring large volume IV fluid resuscitation [ ]v) Pericardial effusion [ ]vi) Bronchial tear [ ]vii) Hemodynamic instability [ ]viii) Other significant complicating feature [ ]c) Threatened compartment syndrome [ ]d) Severe jaime with ANY ONE of the following(68)(69)(70): [ ]i) Hypotension or requirement for aggressive fluid resuscitation [ ]ii) Respiratory insufficiency with requirement for high- flow oxygen or mechanical ventilation [ ]iii) Carbon monoxide poisoning [ ]iv) Life-threatening cardiac, renal, pulmonary, or neurologic dysfunction [ ]v) High-voltage (eg, 1000 volts or more) electrical burn [ ]vi) Requirement for frequent or intensive debridement and dressing changes; examples include: [ ]1) Partial thickness jaime greater than 10% of body surface [ ]2) Jaime on face, hands, feet, genitalia, perineum , or major joints [ ]3) Third-degree jaime [ ]4) Any burn greater than 15% of body surface area [ ]vii) Inhalation lung injury [ ]viii) Concomitant trauma or other medical condition requiring ICU care [ ]e) Preoperative or postoperative patients requiring ICU intervention , such as hemodynamic optimization, pulmonary artery monitoring, mechanical ventilation, or extensive nursing care [ ]XVIII.Otolaryngology diagnoses or procedures, including ANY ONE of the following (71)(72): [ ]a) Complications of any surgery requiring ICU intervention as indicated by ANY ONE of the following: [ ]i) Hemodynamic instability [ ]ii) CA with complications (eg, severe arrhythmia, hypotension) [ ]iii) Excessive bleeding or severe coagulopathy [ ]iv) Respiratory failure [ ]v) Renal failure [ ]vi) Airway instability or obstruction [ ]vii) Neurologic deterioration [ ]viii) Infection with likelihood of sepsis syndrome or significant fluid shifts [ ]b) Airway or hemodynamic compromise that persists after 3 hours of observation in postanesthesia care unit following nasal, palate (eg, uvulopalatopharyngoplasty or palatoplasty), or tongue surgery for sleep apnea [ ]c) Preoperative or postoperative patient requiring ICU intervention, such as hemodynamic optimization, pulmonary artery monitoring, mechanical ventilation, or extensive nursing care [ ]d) Symptomatic upper airway compromise (eg, laryngeal edema, mass) [ ]e) Other airway-compromising procedure (eg, posterior nasal packing) [ ]XIX.Thoracic Surgery and Pulmonary Disease Diagnosis or procedures, including ANY ONE of the following(6): [ ]a) Asthma with ANY ONE of the following(73)(74): [ ]i) Impending or actual respiratory arrest [ ]ii) Need for mechanical ventilation [ ]iii) Peak expiratory flow rate less than 30% of predicted or personal best [ ]iv) Peak expiratory flow rate or FEV1 less than 40% predicted after 1 hour of initial treatment [ ]v) Acidosis [ ]vi) Persistent or worsening hypoxia after initial treatment [ ]vii) Hypercapnia (eg, partial pressure of carbon dioxide greater than 43 mm Hg (5.7 kPa)) [ ]viii) Severe drowsiness, confusion, or coma [ ]ix) Requiring continuous inhaled bronchodilator [ ]b) COPD with ANY ONE of the following(75): [ ]i) Need for assisted ventilation [ ]ii) Hemodynamic instability [ ]iii) Severe dyspnea unresponsive to initial treatment [ ]iv) Change in level of consciousness [ ]v) Persistent findings despite oxygen and outpatient management, including ANY ONE of the following: [ ]1) Partial pressure of oxygen less than 40 mm Hg ( 5.3 kPa) [ ]2) Partial pressure of carbon dioxide greater than 60 mm Hg (8.0 kPa) [ ]3) pH less than 7.25 [ ]4) Worsening hypoxemia or acidosis [ ]c) Cor pulmonale with ANY ONE of the following(75)(76)(77): [ ]i) Hemodynamic instability [ ]ii) Need for IV inotropic or vasoactive agent [ ]iii) Need for invasive hemodynamic monitoring (eg, central venous, pulmonary artery, or arterial catheter) [ ]iv) Hypoxemia with partial pressure of oxygen less than 40 mm Hg (5.3 kPa) [ ]v) Worsening hypoxemia or acidosis despite oxygen therapy [ ]vi) Need for assisted ventilation [ ]vii) Need for right ventricular assist device [ ]viii) Unstable atrial tachyarrhythmia [ ]ix) Need for inhaled nitric oxide [ ]d) Aspiration pneumonia with ANY ONE of the following(78): [ ]i) Acute respiratory distress syndrome (PaO2/FiO2 ratio of 300 or less) [ ]ii) Impending or actual respiratory arrest [ ]iii) Need for invasive or noninvasive mechanical ventilation [ ]e) Pneumocystis jiroveci pneumonia with ANY ONE of the following(79): [ ]i) Impending or actual respiratory arrest [ ]ii) Hypoxia (eg, PO260 mmGh (8.0 kPa) or less despite oxygen therapy) [ ]iii) Need for invasive or noninvasive mechanical ventilation [ ]f) Pneumonia with ANY ONE of the following(80)(81)(82): [ ]i) Need for invasive or noninvasive assisted ventilation [ ]ii) Hemodynamic instability [ ]iii) Severity factors as indicated by 3 or MORE of the following: [ ]1) Respiratory rate 30 breaths per minute or greater [ ]2) PaO2/FiO2 ratio of 250 or less [ ]3) Multilobed infiltrates [ ]4) Altered mental status [ ]5) BUN 20 mg/dL (7.1 mmol/L) or greater [ ]6) WBC count less than 4000/mm3 (4 x109/L) [ ]7) Platelet count <100,000/mm3 (100 x109/L) [ ]8) Temperature less than 36 degrees C (96.8 degrees F ) [ ]9) Hypotension requiring aggressive fluid resuscitation [ ]g) Pulmonary hypertension requiring initiation of parenteral pulmonary vasodilator or trial of inhaled nitric oxide (eg, need for right heart catheterization)(76) [ ]h) Impending respiratory failure as indicated by ANY ONE of the following: [ ]i) Respiratory rate greater than 30 or partial pressure of oxygen less than 60 mm Hg (8.0 kPa) on 50% oxygen or more [ ]ii) Partial pressure of carbon dioxide greater than 45 mm Hg (6.0 kPa) with pH less than 7.35 [ ]i) Respiratory failure with ANY ONE of the following (47): [ ]i) Need for invasive or noninvasive mechanical ventilation [ ]ii) High likelihood of requiring mechanical ventilation within 24 hours [ ]iii) Observation in the first several hours immediately after extubation from mechanical ventilation [ ]iv) Need for close observation and aggressive therapy, such as suctioning, chest physiotherapy, or inhalation treatments at intervals less than 1 hour [ ]v) Pharmacologic ventilatory paralysis [ ]j) Venous thromboembolism with need for systemic or catheter- directed thrombolysis (eg, for limb-threatening thrombosis, phlegmasia cerulea dolens) (83) [ ]k) Pulmonary embolus with ANY ONE of the following(83): [ ]i) Hypotension [ ]ii) Severe hypoxia [ ]iii) Dangerous arrhythmia [ ]iv) Bleeding [ ]v) Need for systemic or catheter-directed thrombolysis [ ]l) Lobectomy or other major thoracic surgery [ ]m) Lung transplant [ ]n) Symptomatic upper airway obstruction (eg, laryngeal edema, mass) [ ]o) Massive hemoptysis [ ]p) Infection or thrombosis of an intravenous device with ANY ONE of the following(6)(84): [ ]i) Hemodynamic instability [ ]ii) Requirement for frequent hemodynamic measurements [ ]iii) Shock [ ]iv) End organ dysfunction [ ] v) Acute renal failure due to missed dialysis [ ]vi) Unstable acute complication (eg, pericardial tamponade , tension pneumothorax) [ ]q) Traumatic rib fracture or fractures with ANY ONE of the following(85): [ ]i) Injury severity score of 19 or greater [ ]ii) Respiratory insufficiency [ ]iii) Flail chest [ ]iv) Sternum fracture [ ]v) Vascular injury (eg, heart or great vessels) [ ]r) Pleural effusion with ANY ONE of the following(86): [ ]i) Respiratory insufficiency [ ]ii) Hemothorax with active ongoing bleeding [ ]iii) Hemodynamic instability [ ]iv) Unstable comorbid condition (eg, sepsis or heart failure [ ]XX. Urology diagnoses or procedures, including ANY ONE of the following ( 87)(88): [ ]a) Renal transplant [ ]b) Complications of any surgery requiring ICU intervention as indicated by ANY ONE of the following: [ ]i) Hemodynamic instability [ ]ii) CA with complications (eg, severe arrhythmia, hypotension) [ ]iii) Excessive bleeding or severe coagulopathy [ ]iv) Respiratory failure [ ]v) Renal failure [ ]vi) Airway instability or obstruction [ ]vii) Neurologic deterioration [ ]viii) Infection with likelihood of sepsis syndrome or significant fluid shifts [ ]c) Preoperative or postoperative patients requiring ICU intervention , such as hemodynamic optimization, pulmonary artery monitoring, mechanical ventilation , or extensive nursing care [ ]XXI.Infectious Disease diagnoses or procedures, with ANY ONE of the following (6)(43): [ ]a) Hemodynamic instability [ ]b) Shock [ ]c) Requirement for frequent hemodynamic measurements (eg, arterial catheter, pulmonary artery catheter) [ ]d) Sepsis or suspected sepsis with end organ dysfunction (eg, acute kidney injury, acute respiratory distress syndrome) [ ]e) Necrotizing soft tissue infection [ ] XXII.Hematology - Oncology diagnoses or procedures, including chemotherapy administration with ANY ONE of the following(42): [ ]a) Hemodynamic instability [ ]b) Tumor lysis syndrome with ANY ONE of the following : [ ]1) Acute kidney injury [ ]2) Severe electrolyte abnormality [ ]3) Cardiac dysrhythmia [ ]XXIII. Systemic conditions, including ANY ONE of the following: [ ]a) Severe electrolyte or metabolic disturbance causing or likely to cause ANY ONE of the following(10)(89)(90): [ ]i) Life-threatening cardiac dysrhythmia [ ]ii) Respiratory insufficiency [ ]iii) Altered mental status [ ]iv) Seizures [ ]v) Hemodynamic instability [ ]vi) Muscular weakness [ ]b) Environmental injuries such as hypothermia, hyperthermia, electrical injuries, or near drowning(70)(91)(92) The original [employer] content created by [employer] has been revised. The portions of the content which have been revised are identified through the use of italic text or in bold, and [facility] has neither reviewed nor approved the modified material. All other unmodified content is copyright [employer]. Please see references footnoted in the original [facility] edition 2016 Admission Criteria Met: Yes
[2016-08-12] MEDS ORDERED: NACL 0.9% 500 ML IV SCH (12:00)
[2016-08-12] MEDS ORDERED: ATROPINE 0.1% (CARDIAC) IV ONE (12:00)
[2016-08-12] MEDS ORDERED: LEVOPHED DRIP 4 MG/NS 250 ML 250 ML IV SCH (12:00)
[2016-08-12] MEDS ORDERED: WATER FOR INJ (PF) 10 ML ONE ×2 (12:04→12:38)
[2016-08-12 12:18] LABS: Basophils % (Manual) 0 % (0.0-1.8); Blastocytes % (Manual) 0 %; Eosinophils % (Manual) 0 % (0.0-4.3)
[2016-08-12 12:19] LABS: Anisocytosis 1+; Hypochromasia 1+
[2016-08-12 12:20] LABS: Target Cells Rare
--- NOTE | 2016-08-12 12:20 | Consultation ---
History of Present Illness - Reason for Consult Consult date: 08/12/16 acute renal failure, chronic renal failure, hyperkalemia Requesting physician: MIKE SARKAR - History of Present Illness This is a 56 yo AAF with past medical history of type 2 DM, hypertension, COPD, ANIL, chronic diastolic HF, [facility] with [facility]opulmonary arrest. She was in asystole per EMS. Chest compressions performed. EMS unable to intubate on the field and intubated in ED. Per Patient's sister who presented to the ED states that patient has not received her BiPAP since being at the [facility]. We are consulted for evaluation of elevated potassium of 6.5 and BUN/CR of 100/ 2.7. 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 Up on d/c from the hospital her BUN/CR were at 57/1 respectively. She was treated with fludrocortisone 0.1mg tiw for persistent hyperkalemia. Unclear if she has continued fludrocortison at the [facility]. Past History Past Medical History: COPD, diabetes, heart failure Past Surgical History: No surgical history Social history: smoking (and smoker at half a pack per day) Family history: no FH of ESRD Medications and Allergies Allergies Allergy/AdvReac Type Severity Reaction Status Date / Time No Known Allergies Allergy Verified 07/26/16 23:28 Home Medications Medication Instructions Recorded Confirmed Last Taken Type Albuterol Sulfate [Proair 90 mcg IH Q4HR 07/26/16 07/26/16 Unknown History Respiclick] Aspirin [Aspirin TAB] 325 mg PO QDAY 07/26/16 07/26/16 Unknown History AtorvaSTATin [Lipitor] 40 mg PO QHS 07/26/16 07/26/16 Unknown History Carvedilol [Coreg] 3.125 mg PO BID 07/26/16 07/26/16 Unknown History Lisinopril [Zestril TAB] 2.5 mg PO QDAY 07/26/16 07/26/16 Unknown History metFORMIN [Glucophage] 500 mg PO BID 07/26/16 07/26/16 Unknown History Fludrocortisone [Florinef] 0.1 mg PO TuThSa #10 tablet 08/07/16 Unknown Rx Furosemide [Lasix TAB] 40 mg PO QDAY #30 tablet 08/07/16 Unknown Rx Pantoprazole [Protonix TAB] 40 mg PO QDAY #30 tablet 08/07/16 Unknown Rx Prednisone [predniSONE 10 mg 10 mg PO .TAPER #1 tab.ds.pk 08/07/16 Unknown Rx (6-Day Pack, 21 Tabs)] Active Meds: Active Medications Enoxaparin Sodium (Lovenox) 30 mg SUB-Q QDAY GEOFFREY Hydrophilic Ointment (Vaseline Lip Therapy) 1 applic TP Q2HR PRN PRN Reason: Dry Lips Norepinephrine (Levophed Drip 4 Mg/Ns 250 Ml) 250 mls @ 7.5 mls/hr IV TITR GEOFFREY ; 2 MCG/MIN PRN Reason: Protocol Last Titration: 08/12/16 12:14 Dose: 30 mcg/min Sodium Chloride (Nacl 0.9% 1000 Ml) 2,000 mls @ 999 mls/hr IV ONCE ONE Stop: 08/12/16 13:00 Last Admin: 08/12/16 11:00 Dose: 999 mls/hr Sodium Chloride (Nacl 0.9% 1000 Ml) 1,000 mls @ 999 mls/hr IV ONCE ONE Stop: 08/12/16 12:28 Last Admin: 08/12/16 12:08 Dose: 999 mls/hr Calcium Gluconate 1,000 mg/ (Sodium Chloride) 110 mls @ 660 mls/hr IV ONCE.ED ONE Stop: 08/12/16 12:55 Sodium Chloride (Nacl 0.9% 1000 Ml) 1,000 mls @ 999 mls/hr IV ONCE ONE Stop: 08/12/16 13:16 Sodium Chloride (Nacl 0.9% 1000 Ml) 1,000 mls @ 999 mls/hr IV ONCE ONE Stop: 08/12/16 13:17 Phenylephrine HCl 100 mg/ (Sodium Chloride) 100 mls @ 3 mls/hr IV TITR GEOFFREY; 50 MCG/MIN PRN Reason: Protocol Multi-Ingred Cream/Lotion/Oil/Oint (Artificial Tears Ophth Oint) 1 applic OU Q4HR PRN PRN Reason: Dry Eye(s) Sodium Bicarbonate (Sodium Bicarbonate) 50 meq IV ONCE ONE Stop: 08/12/16 13:01 Sodium Bicarbonate (Sodium Bicarbonate) 50 meq IV ONCE ONE Stop: 08/12/16 13:01 Sodium Chloride (Nacl 0.9% 500 Ml) 1 ml IV DIRECT GEOFFREY Review of Systems ROS unobtainable: due to endotracheal tube, due to mental status Exam - Vital Signs Vital signs: Vital Signs Pulse Resp BP Pulse Ox 49 L 17 54/12 90 08/12/16 10:49 08/12/16 10:49 08/12/16 10:49 08/12/16 10:49 - General Appearance General appearance: obese, intubated, comatose EENT: ATNC, mucous membranes dry Neck: Present: neck supple, trachea midline Respiratory: Wheezes, Decreased Breath Sounds Heart: regular, bradycardia, no murmurs Gastrointestinal: Present: normoactive bowel sounds, obese. Absent: tenderness Integumentary: no rash, warm and dry Neurologic: other (unresponsive following CPR ) Musculoskeletal: Absent: deformities, joint swelling Results - Lab Results 08/12/16 11:18 08/12/16 11:18 Most recent lab results Calcium 7.1 mg/dL (8.4-10.2) L 08/12/16 11:18 Assessment and Plan 1/ S/p cardiopulmonary arrest 2. Hyperkalemia likly multifactorial including hx of type IV RTA, ACEI, cell shift of K with acidosis 3. Acute on chronic respiratory arrest 4. Hypotension 5. ERINN likely 2/2 ATN with her cardiac arrest 6. COPD exacerbation 7. Lactic acidosis 8. Elevated troponine level Plan: Pt critically sick. BP in the 50's systolic. She has recieved 1 L of 0.9 NS and receiving her second L NS. Will give her 2 more litres of 0.9 NS Started on Levophed. Will maximize dose to maintain a MAP >= 65 Added also neosynephrine Medical management of hyperkalemia-bicarb, calcium gluconate, insulin with D50 Pateint is unstable for renal replacement therapy at this time Vent management per pulmonary service Further recommendations to follow Discussed with ED nurse and Dr Sarkar CCT 45 min Thank you for the consult
[2016-08-12 12:21] LABS: Diff Status Complete; Platelet Estimate Consistent w Auto; Stomatocytes Few
[2016-08-12 12:26] LABS: ISTAT Base Excess 2; ISTAT HCO3 30.5; ISTAT PCO2 80.7 (35-45); ISTAT PH 7.185 (7.35-7.45); ISTAT PO2 25 (80-105); ISTAT SO2 30; ISTAT TCO2 33
[2016-08-12] MEDS ORDERED: CALCIUM GLUCONATE 1,000 MG in NACL 0.9% 100 ML IV ONE (12:46)
[2016-08-12] MEDS ORDERED: NEO-SYNEPHRINE 100 MG in NACL 0.9% 90 ML IV SCH ×2 (12:49→13:20)
[2016-08-12] MEDS ORDERED: VANCOMYCIN/NS 1 GM/250 ML 250 ML IV ONE (13:02)
[2016-08-12] MEDS ORDERED: ZOSYN/NS 4.5GM/100ML 100 ML IV ONE (13:02)
[2016-08-12] MEDS ORDERED: NACL 0.9% 500 ML 500 ML ONE (13:14)
[2016-08-12 13:50] VITALS: BP 66/41
--- NOTE | 2016-08-12 13:52 | Consultation ---
History of Present Illness Consult date: 08/12/16 Requesting physician: MIKE MATHIAS Reason for consult: other (Acute Respiratory Failure; S/P Cardiopulmonary Arrest ) History of present illness: PULMONARY/CCM CONSULT (Full dictation # [id number]) Please see dictated notes for full details Medications and Allergies Allergies Allergy/AdvReac Type Severity Reaction Status Date / Time No Known Allergies Allergy Verified 07/26/16 23:28 Home Medications Medication Instructions Recorded Confirmed Last Taken Type Albuterol Sulfate [Proair 90 mcg IH Q4HR 07/26/16 07/26/16 Unknown History Respiclick] Aspirin [Aspirin TAB] 325 mg PO QDAY 07/26/16 07/26/16 Unknown History AtorvaSTATin [Lipitor] 40 mg PO QHS 07/26/16 07/26/16 Unknown History Carvedilol [Coreg] 3.125 mg PO BID 07/26/16 07/26/16 Unknown History Lisinopril [Zestril TAB] 2.5 mg PO QDAY 07/26/16 07/26/16 Unknown History metFORMIN [Glucophage] 500 mg PO BID 07/26/16 07/26/16 Unknown History Fludrocortisone [Florinef] 0.1 mg PO TuThSa #10 tablet 08/07/16 Unknown Rx Furosemide [Lasix TAB] 40 mg PO QDAY #30 tablet 08/07/16 Unknown Rx Pantoprazole [Protonix TAB] 40 mg PO QDAY #30 tablet 08/07/16 Unknown Rx Prednisone [predniSONE 10 mg 10 mg PO .TAPER #1 tab.ds.pk 08/07/16 Unknown Rx (6-Day Pack, 21 Tabs)] Active Meds: Active Medications Enoxaparin Sodium (Lovenox) 30 mg SUB-Q QDAY GEOFFREY Hydrophilic Ointment (Vaseline Lip Therapy) 1 applic TP Q2HR PRN PRN Reason: Dry Lips Norepinephrine (Levophed Drip 4 Mg/Ns 250 Ml) 250 mls @ 7.5 mls/hr IV TITR GEOFFREY ; 2 MCG/MIN PRN Reason: Protocol Last Titration: 08/12/16 12:14 Dose: 30 mcg/min Sodium Chloride (Nacl 0.9% 1000 Ml) 1,000 mls @ 999 mls/hr IV ONCE ONE Stop: 08/12/16 14:00 Last Admin: 08/12/16 12:57 Dose: 999 mls/hr Sodium Chloride (Nacl 0.9% 1000 Ml) 1,000 mls @ 999 mls/hr IV ONCE ONE Stop: 08/12/16 14:00 Last Admin: 08/12/16 13:02 Dose: 999 mls/hr Phenylephrine HCl 100 mg/ (Sodium Chloride) 100 mls @ 3 mls/hr IV TITR GEOFFREY; 50 MCG/MIN PRN Reason: Protocol Last Admin: 08/12/16 12:50 Dose: 6 mls/hr Vancomycin HCl (Vancomycin/Ns 1 Gm/250 Ml) 250 mls @ 167 mls/hr IV ONCE ONE PRN Reason: Protocol Stop: 08/12/16 14:31 Multi-Ingred Cream/Lotion/Oil/Oint (Artificial Tears Ophth Oint) 1 applic OU Q4HR PRN PRN Reason: Dry Eye(s) Sodium Chloride (Nacl 0.9% 500 Ml) 1 ml IV DIRECT GEOFFREY Physical Examination Vital signs: Vital Signs Pulse Ox 97 08/12/16 10:38 Results - Laboratory Findings CBC and BMP: 08/12/16 11:18 08/12/16 11:18 ABG POC ABG pH 7.185 (7.35-7.45) L 08/12/16 12:20 POC ABG pCO2 80.7 (35-45) H 08/12/16 12:20 POC ABG pO2 25 (80-105) L 08/12/16 12:20 POC ABG HCO3 30.5 08/12/16 12:20 POC ABG Total CO2 33 08/12/16 12:20 POC ABG O2 Sat 30 08/12/16 12:20 PT/INR, D-dimer PT 17.6 Sec. (12.2-14.9) H 08/12/16 11:18 INR 1.45 (0.87-1.13) H 08/12/16 11:18 Abnormal lab findings: Abnormal Labs 08/12/16 12:20 POC ABG pH 7.185 L POC ABG pCO2 80.7 H POC ABG pO2 25 L
--- NOTE | 2016-08-12 17:20 | History and Physical Report ---
CHIEF COMPLAINT: Cardiac arrest and CPR on the field. HISTORY OF PRESENT ILLNESS: A 56-year-old female with history of recent respiratory failure, supposed to be on BiPAP, was found in cardiopulmonary arrest. EMS found the patient in asystole. ACLS protocol was initiated. The patient was intubated through the nose, but aborted due to gagging and bleeding from the nose. The patient received [id number] ventilations until arrival at the ER. In the ER, the patient was bradycardic and with palpable pulse. Apparently, the patient did not receive her BiPAP after discharge. The patient was intubated in the ER and was given epinephrine and was started on pressors and the rhythm was brought back and blood pressure was in the 70s/40s in spite of the two pressors. PAST MEDICAL HISTORY: As mentioned, significant for COPD, respiratory failure, hyperlipidemia, hypertension, [id number] diabetes, chronic respiratory failure, on BiPAP. CURRENT MEDICATIONS: Albuterol 2 puffs q.4 p.r.n., aspirin 325 p.o. daily, atorvastatin 40 mg p.o. daily, Coreg 3.125 p.o. b.i.d., Zestril 2.5 p.o. daily, metformin 500 mg p.o. b.i.d., Florinef 0.1 p.o., Tuesdays, , and Saturdays, Furosemide 40 mg daily, Protonix 40 mg daily, and prednisone pack 10 mg on a taper dose. ALLERGIES: None. SOCIAL HISTORY: Used to smoke in the past. PAST SURGICAL HISTORY: Unknown. REVIEW OF SYSTEMS: The patient in cardiorespiratory arrest, revived, and now with low blood pressure and sats 100%. The patient on ventilator. Also bleeding through the nose present. PHYSICAL EXAMINATION: GENERAL: The patient is intubated, unresponsive. VITAL SIGNS: Decerebrating and blood pressure was 46/25, 50/28, and 50/28, and came up to 80/46 with the pressors. Temperature is 96 to 97. Respiratory rate is 16, which is the vent support rate. Pulse ox was 100% on the vent. HEENT: Bleeding through the nose, both nostrils present. NECK: Supple, no lymphadenopathy, no thyromegaly. LUNGS: Scattered rhonchi bilaterally. Good air entry. CARDIOVASCULAR: S1, S2 heard. No gallop, no murmur, no rub. Apical impulse in the left fifth intercostal space and midclavicular line. ABDOMEN: Soft and benign. No hepatosplenomegaly. No guarding, no rigidity. Hernial orifices are normal. EXTREMITIES: Good pedal pulses. No pedal edema. CENTRAL NERVOUS SYSTEM: Unresponsive. SKIN: Normal. LABORATORY DATA: Potassium is 6.5, white count is 14,200. BUN and creatinine 100 and 2.7. ABG significant for pH of 7.185, pCO2 of 80, and pO2 of 75, bicarbonate of 30 and O2 sat of 30%. Potassium of 6.5. Lactic acid of 6.9. Troponin is 0.124. EKG shows a platelet count was 56,000. Adequate placement of the ET tube and central venous catheter. EKG, sinus bradycardia at 55 with first-degree AV block. No ST elevation. ASSESSMENT AND PLAN: 1. Cardiorespiratory arrest, revived. The patient intubated. The patient is at low blood pressure at present with a heart rate of 55 per minute, sats are 100%. 2. Acute respiratory failure secondary to chronic obstructive pulmonary disease and chronic respiratory failure. The patient's bicarbonate is high. We will try continuing ventilation. 3. Hypotension. The patient is on two pressors, prognosis is very poor, we will try without pressor. 4. Hyperkalemia; hyperkalemia cocktail to be given. 5. Septicemia, broad-spectrum antibiotics given. 6. Prognosis is very poor. I am going to discuss with sister about possible DNR and withdrawing life support. 7. The patient is critically ill. CRITICAL CARE STATEMENT: The high probability of a clinically significant sudden or life-threatening deterioration of the cardiorespiratory system required my full-length direct attention, intervention, and personal management. Aggregate critical care time was 40 minutes. The time is in addition to the time spent performing reported procedures, but includes the following data review and interpretation, the patient's assessment and monitoring of vital signs, documentation, medication orders, and management. JOB# [id number] ROLAN/ANNA
--- NOTE | 2016-08-12 17:33 | Discharge Summary ---
SUMMARY TIME OF EXPIRATION: 1403 hours. The patient was admitted for a cardiopulmonary arrest, had acute respiratory failure. The patient underwent ACS protocol on the field and the EMS tried to intubate her through the mouth and then through the nose. They could not intubate and they backed the patient and brought into the ER. In the ER, it was a difficult intubation, but the patient was intubated. A central line was inserted. The patient was started on pressors. The patient was on the vent; however, it was started on ventilator, IV pressors, sodium bicarbonate was given for high potassium. Kayexalate was given via NG tube. The patient was also given IV Zosyn for broad-spectrum coverage and methylprednisone for acute respiratory failure and COPD exacerbation. In spite of all the aggressive measures, the patient's blood pressure continued to be low in the 40s/20s and max was 84/50, and the sister decided not to continue further aggressive measures. The patient was continued on pressors for sometime, but the patient flat lined and because of sister signed the DNR. The patient was not resuscitated. CAUSE OF : Cardiopulmonary arrest secondary to cardiorespiratory failure, also hyperkalemia, anoxic encephalopathy. TIME OF : [address] Grewal. physician to sign the certificate will be Dr. Grewal. Time spent in discharge 25 minutes. JOB# [id number] ROLAN/ANNA SOSA
[2016-08-12] MEDS ORDERED: ADRENALIN ONE (21:36)
[2016-08-12] MEDS ORDERED: QUELICIN ONE (21:39)
--- NOTE | 2016-08-13 07:30 | Consultation ---
CONSULTING PHYSICIAN: Dr. Hien Sarkar, Emergency Room physician. REASON FOR CONSULTATION: Status post cardiac arrest, ventilator management. CHIEF COMPLAINT AND HISTORY OF PRESENT ILLNESS: The patient is a 56-year-old female with past medical history significant amongst other things for a diagnosis of chronic obstructive lung disease with cor pulmonale. According to her sister, she suffered a lot from respiratory issues over the past few months really. She reportedly was at a snf. She presented from the snf to the ER status post cardiopulmonary arrest. Emergency medical services reported she was in asystole when they got there. Chest compressions were performed. They were unable to intubate orally, mostly due to gagging and secretions. In the ER, she received bag valve mask ventilation. She was a little bit bradycardic. She reportedly had not been on her BiPAP since she had been on the snf. She was intubated by rapid sequence intubation in the Emergency Room and placed on the ventilator. We are asked to assist with evaluation. When I stopped by to see her, she was on the mechanical ventilator. She had some bleeding around the oropharyngeal region. She was mostly nonresponsive. I believe the vasopressor drip was just been started. I do not have any history of emesis or aspiration. This really is as much of the history of presentation as I have and it is unclear what her neurologic baseline was. I should say actually that is wrong, the sister said she spoke to her earlier in the morning and when I had seen her the day before and that her mental status was normal essentially. With regards to tobacco use/abuse history, it is unknown if she was ever a smoker. PAST MEDICAL HISTORY: COPD, diastolic CHF, chronic kidney disease. She was obese morbidly so. She was home oxygen dependent on the CO2. PAST SURGICAL HISTORY: Unknown. MEDICATIONS: She was on at the time I stopped by to see her, according to the medication administration record, she was on albuterol treatments. She received one-time dose of albuterol. She received some atropine I believe and calcium, most likely during resuscitative efforts. She was on Lovenox 30 mg subq daily, insulin via sliding scale. Actually, received the insulin along with D50 I believe for hyperkalemia. Solu-Medrol, received a one-time dose of 125 mg, Levophed drip has been started at about 2 mcg per minute. Greg-Synephrine had also been ordered. Zosyn 4.5 grams IV was given. She received some bicarb during resuscitative efforts, received Kayexalate 60 mg p.o. x 1, and received succinylcholine 100 mg IV x 1 I believe for intubation. ALLERGIES: No known drug allergies. DIET: Obese lady, acute weight loss or gain history is unknown. FAMILY AND SOCIAL HISTORY: jail resident. Alcohol, tobacco, or illicit drug use or abuse history is unknown. REVIEW OF SYSTEMS: Unobtainable secondary to the patient's medical and mental condition since she has been in the ER. No overt seizures. No gross hematochezia or melena. No gross hematuria. No bloody tracheal secretions. PHYSICAL EXAMINATION: VITAL SIGNS: At presentation, the first temperature, I do not see any temperature recorded. Pulse was 50 at presentation, respiratory rate was 16, blood pressure was 54/12. Oxygen sats were recorded as 97%. Inspired oxygen concentration was not recorded. HEAD, EYES, EARS, NOSE, AND THROAT: The left orbit in particular was protuberant. Conjunctivae was red and injected. Pupils are about 4 mm, sluggishly reactive to light. Extraocular muscle movements could not be assessed. Endotracheal tube was in place, taped at the lips around 23 to 24 cm. Grossly, no palpable lymph nodes in the supraclavicular or submandibular lymph node chains. LUNGS: Auscultation of both lung salvador revealed diminished bilateral breath sounds and basilar rhonchi, no wheezing. HEART: Heart sounds 1 and 2 are heard. At the time of my evaluation, she was regular ____ ABDOMEN: Soft, full, bowel sounds are positive, but hypoactive, did not appear tender. EXTREMITIES: Without overt digital clubbing or cyanosis. She did have trace bipedal pitting edema. NEUROLOGIC: She was nonresponsive at the time I just received medications for intubation. LABORATORY DATA: From my review are as follows: White cell count 14,200, hemoglobin 10.7, hematocrit 34.1, platelet count 56. INR 1.45. Arterial blood gas showed a pH of 7.19, pCO2 of 81, pO2 of 25, on 50% FiO2. It is unclear if that was done before intubation or not. Serum sodium was 138, potassium was 6.5 on presentation, chloride was 93, bicarb was 25, BUN was 100, creatinine was 2.7, glucose was 197. Lactic acid level was elevated at 6.9. AST was up at 56, ALT up at 67. Cardiac enzymes, troponin 0.12, albumin was low at 2.4. Cultures have been sent to the lab. No growth to date. Chest x-ray was reviewed. Essentially endotracheal tube tip is below the lower head of the clavicular border. There is cardiomegaly. It is an AP film, but there is cardiomegaly. It is a lordotic film. She has a right IJ central line with a tip in the mid to distal SVC. No gross pneumothorax, no gross bony fracture. Slightly increase in interstitial markings, likely chronic in nature. ASSESSMENT AND PLAN: We have a middle-aged lady status post cardiac arrest, status post acute respiratory failure and etiology ____. From a respiratory standpoint, we will hyperventilate her in the short time. I will discuss further therapies and see if they have made any changes to the sed volumes. Hopefully, we can correct the acidosis, a lot of it will be respiratory; however, I assume that she probably is a chronic CO2 retainer. Bronchodilators will be scheduled. Aspiration precautions will be maintained and hopefully mental status improves; otherwise, that may be the rate limiting factor to extubation. We will see how she responds. From a cardiovascular standpoint, we will continue vasopressor medications in the short time. It is unclear if her sister want us to continue to resuscitate; however, she may decide to make her DNR based on my discussions with her, but for now, we will do everything. Acute coronary syndrome workup will be at the behest of the attending physician. From an Infectious Disease standpoint, she is appropriately on broad-spectrum antibiotic therapy. She has been pancultured. Anti-infectives will ultimately be deescalated based on results of clinical and microbiologic data. From a renal standpoint, the numbers do suggest actually intravascular volume depletion. Volume resuscitation will be continued. Nephrology has been consulted to see her. Interventions have been made for the hyperkalemia. Inputs and outputs will be monitored. Electrolytes will be corrected as necessary. From a GI and nutritional standpoint, enteral nutrition will be the feeding modality of choice. She will be placed on GI prophylaxis and aspiration precautions will be maintained. From a [employer] standpoint, a little too unstable for neuro imaging at this point, but we will follow her clinically. Does not have any spontaneous movements at this time. However, just recently received anticoagulation, so it is unclear if this is a true neurologic issue or just the paralytics, we will follow her clinically. From a general and hospital healthcare maintenance standpoint, she will be placed on GI and DVT prophylaxis. Flu and pneumonia vaccination will be per protocol. Thank you very much for the consult. We will follow along and make further recommendations as picture progresses/becomes clear. She is critically ill on life-sustaining interventions including mechanical ventilator support with vasopressors at high risk of further decompensation including . At this time, I spent about 35 to 40 minutes of critical care time without overlap and excluding any procedural time that may be necessary. JOB# [id number] [employer]
[2016-08-13] MEDS ORDERED: LOVENOX SUB-Q SCH (10:00)
== END 2016-08-12 14:03 | DRG 871 ==
LOC: ED 10:35 → CC1 12:14
PROVIDERS: ADMIT Internal Medicine; ATTEND Internal Medicine
PROC: 05HM33Z Insertion of Infusion Device into Right Internal Jugular Vein, Percutaneous Approach (ICD-10-PCS; principal; 2016-08-12)
PROC: B543ZZA Ultrasonography of Right Jugular Veins, Guidance (ICD-10-PCS; 2016-08-12)
PROC: 0BH17EZ Insertion of Endotracheal Airway into Trachea, Via Natural or Artificial Opening (ICD-10-PCS; 2016-08-12)
PROC: 5A12012 Performance of Cardiac Output, Single, Manual (ICD-10-PCS; 2016-08-12)
PROC: 5A1935Z Respiratory Ventilation, Less than 24 Consecutive Hours (ICD-10-PCS; 2016-08-12)
DX: A41.9 Sepsis, unspecified organism (principal); J96.20 Acute and chronic respiratory failure, unspecified whether with hypoxia or hypercapnia; N17.9 Acute kidney failure, unspecified; J44.1 Chronic obstructive pulmonary disease with (acute) exacerbation; I50.32 Chronic diastolic (congestive) heart failure; I13.0 Hypertensive heart and chronic kidney disease with heart failure and stage 1 through stage 4 chronic kidney disease, or unspecified chronic kidney disease; G93.1 Anoxic brain damage, not elsewhere classified; I46.9 Cardiac arrest, cause unspecified; E87.5 Hyperkalemia; I27.81 Cor pulmonale (chronic); R04.0 Epistaxis; D69.6 Thrombocytopenia, unspecified; E66.01 Morbid (severe) obesity due to excess calories; N18.9 Chronic kidney disease, unspecified; E78.5 Hyperlipidemia, unspecified; E11.22 Type 2 diabetes mellitus with diabetic chronic kidney disease; G47.33 Obstructive sleep apnea (adult) (pediatric); F17.210 Nicotine dependence, cigarettes, uncomplicated; Z66 Do not resuscitate; Z79.82 Long term (current) use of aspirin; Z79.899 Other long term (current) drug therapy; Z68.38 Body mass index [BMI] 38.0-38.9, adult
CPT/HCPCS: 36415; 71010; 80053; 80061; 82140; 82550; 82553; 82803; 82805; 82962; 84484; 85007; 85025; 85610; 85730; 87040; 87070; 87205; 93005; 93010; 94002; 94640; J0171; J0330; J0461; J0610; J1815; J2370; J2930; J7030; J7040